=== PATIENT | female | born 1990 | race Caucasian/White ===

== ENCOUNTER 2019-05-10 18:10 | Emergency (ER) | payer BC, MEDICAID, SELFPAY ==
--- NOTE | ~2019-05-10 | US_ITS ---
EXAMINATION: US OB <=14 wk fetus w TV DATE: 05/10/2019 20:16 INDICATION: Vaginal spotting. Evaluate for ectopic . TECHNIQUE: Real-time transabdominal obstetric ultrasound. FINDINGS: No prior studies for comparison. The uterus measures 8 x 5.9 x 6.3 cm. There is an intrauterine gestational sac, with yolk sac. No fet al pole identified. No subchorionic hemorrhage. There is a 2.9 cm corpus luteal cyst of the right ova ry. Left ovary is unremarkable. No free fluid in the pelvis. IMPRESSION: 1. Intrauterine gestational sac containing a yolk sac. Gestational sac diameter corresponds to 5 week 3 day gestation, EUNICE 01/07/2020. No pole is identified yet due to early gestational age. Recom mend follow-up with serial quantitative beta-hCG levels and ultrasound as clinically indicated. Reviewed, dictated and finalized at location A. ICATION DEVELOPMENT LIAISON IMPRESSION: 1. Intrauterine gestational sac containing a yolk sac. Gestational sac diameter corresponds to 5 week 3 day gestation, EUNICE 01/07/2020. No pole is identi fied yet due to early gestational age. Recommend follow-up with serial quantita tive beta-hCG levels and ultrasound as clinically indicated.
[2019-05-10 18:25] VITALS: BP 123/81; PULSE 100; RESP 18; TEMP 37.1; O2SAT 100
[2019-05-10 18:57] LABS: Add Urine Microscopic? YES; Appearance Urine Clear (Clear); Bacteria Urine Trace /hpf; Bilirubin Urine Negative (Negative); Blood Urine Negative (Negative); Color Urine Yellow (Yellow); Glucose Urine UA Negative (Negative); Ketones Urine Trace mg/dL (Negative); Leukocyte Esterase Ur 3+ LEU/UL (Negative); Nitrate Urine Negative (Negative); Protein Urine Negative (Negative); Specific Grav Ur 1.014 (1.001-1.035); Squamous Epithelial Cell Urine Many /hpf (Few); Urobilinogen Urine Negative mg/dL (<2.0)
[2019-05-10 19:09] LABS: Basophils Absolute Auto 0.1 K/mm3 (0.0-0.1); Basophils Percent Auto 0.4 % (0.2-1.2); Eosinophils Absolute Auto 0.1 K/mm3 (0-0.3); Eosinophils Percent Auto 0.9 % (0-4.4); Hematocrit 38.1 % (37.0-47.0); Hemoglobin 13.2 g/dL (12.0-15.0); Immature Granulocyte Absolute 0.03 K/mm3 (0.00-0.031); Immature Granulocyte Percent A 0.3 % (0-0.5); Lymphocytes Absolute Auto 3.34 K/mm3 (0.9-3.2); Mean Corpuscular HGB Conc 34.6 g/dl (32-36); Mean Corpuscular Hemoglobin 29.7 pg (26-34); Mean Corpuscular Volume 85.6 fl (80-100); Mean Platelet Volume 9.2 fl (7.4-10.4); Monocytes Absolute Auto 0.7 K/mm3 (0.1-0.6); Monocytes Percent Auto 5.6 % (2.6-8.5); Neutrophils Absolute Auto 7.7 K/mm3 (1.3-6.7); Neutrophils Percent Auto 64.8 % (45.5-73.1); Platelet Count Result 398 k/mm3 (150-375); Red Blood Count 4.45 M/mm3 (4.2-5.4); Red Cell Distribution Width 12.2 % (11.5-14.5); White Blood Count 11.9 K/mm3 (4.5-10.0)
--- NOTE | 2019-05-10 19:32 | ED.PREGNANCY ---
HPI - General Chief complaint: OB/Uterine Contractions Stated complaint: ,spotting,cramping Time Seen by Provider: 05/10/19 19:25 Source: patient Mode of arrival: ambulatory Limitations: no limitations History of Present Illness HPI Narrative: A 28 y/o female presents to the ED with c/o vaginal bleeding. Pt states that she is currently and the vaginal bleeding started today. She is not sure how far along she is, but her last menstrual cycle was the end of February 2019. Pt adds that her menstrual cycles are usually abnormal. Her first [facility] appointment is 05/15/[address] Roche. Pt is . She reports mild ABD cramping. MD Complaint: vaginal bleeding Onset (ago): hour(s) (Today) Associated symptoms: abdominal pain (Mild cramping) Hx Last Menstrual Period: End of February 2019 Patient : Yes Number of Weeks : Unknown Related Data : 2 Para: 1 Allergies Allergy/AdvReac Type Severity Reaction Status Date / Time Penicillins Allergy Intermediate Verified 08/30/18 14:34 levofloxacin Allergy Mild Rash Verified 03/25/15 12:42 amoxicillin Allergy Unknown Verified 03/25/15 12:42 cephalexin Allergy Unknown Verified 03/25/15 12:42 Review of Systems Review of Systems: All systems reviewed & are unremarkable except as noted in HPI and below Gastrointestinal: Gastrointestinal: Reports abdominal pain (Mild cramping) Genitourinary: Genitourinary: Reports abnormal vaginal bleeding PMFSH Past Medical History Medical History Anxiety 2 UTI (urinary tract infection) Surgical History Surgical History (Updated 05/10/19 @ 19:40 by Nahed Martin) History of cholecystectomy Family History Family History Mother Family history of gallbladder disease Other Family history of cardiovascular disease Hypertension Social History Social History Smoking status: Never smoker Alcohol intake: never Gender identity (if verbalized by the patient): Female Exam Narrative: Exam Narrative: APPEARANCE: No acute distress, nontoxic, resting in bed EYES: EOMI HEENT: Normocephalic, atraumatic, OMM RESPIRATORY: No respiratory distress Clear to auscultation bilaterally with no rhonchi wheezing or rales. CARDIOVASCULAR: Regular rate and rhythm without murmurs rubs or gallops. ABDOMINAL: Soft, nontender, nondistended, no rebound or guarding : Normal external exam, no vaginal bleeding or discharge seen, cervix closed MUSCULOSKELETAl: Moves all extremities. No clubbing, cyanosis or edema. NEURO: Awake and alert. Following commands, speech normal, no focal deficits SKIN:: Warm, dry. No rashes lesions or abrasions PSYCHIATRIC: Normal affect/mood, Course Course Emergency Course: Discussed with patient results of workup and diagnosis. Discussed need for follow-up with primary care, proper use of medication, and reasons to return to the emergency department. Patient understands and agrees to current treatment plan Reevaluation(s) Reevaluation #1: Patient is A+ blood type according to notes from August 2011. Date: 05/10/19 Time: 19:36 Consultations Consultation #1: Discussed case with [facility], Dr. Jamison. They advise the patient be discharged and to follow-up. Date: 05/10/19 Time: 21:25 Vital Signs Vital signs: Vital Signs Temperature 98.7 F 05/10/19 18:25 Pulse Rate 100 05/10/19 18:25 Respiratory Rate 18 05/10/19 18:25 Blood Pressure 123/81 05/10/19 18:25 Pulse Oximetry 100 05/10/19 18:25 Temperature 97.6 F 05/10/19 19:35 Pulse Rate 89 05/10/19 20:27 Respiratory Rate 18 05/10/19 19:35 Blood Pressure 127/98 H 05/10/19 20:27 Pulse Oximetry 98 05/10/19 19:35 MDM - OB/Uterine Contractions Lab Data Result diagrams: 05/10/19 19:00 Labs: Lab Results 05/10/19 05/10/19 05/10/19 Range/Units
[2019-05-10 19:35] VITALS: BP 127/74; PULSE 81; RESP 18; TEMP 36.4; O2SAT 98
--- NOTE | 2019-05-10 19:40 | PC.NURSE ---
ultrasound here to take patient.
[2019-05-10 20:27] VITALS: BP 120/81; BP 122/80; BP 127/98; PULSE 80; PULSE 81; PULSE 89
[2019-05-10 21:52] VITALS: BP 115/62; PULSE 81; RESP 16; TEMP 36.3; O2SAT 100
== END 2019-05-10 21:53 | disposition home or self-care (01) ==
PROVIDERS: Emergency Medicine; Emergency Provider Emergency Medicine
DX: O20.0 Threatened abortion (principal); Z3A.01 Less than 8 weeks gestation of pregnancy; Z87.440 Personal history of urinary (tract) infections
CPT/HCPCS: 36415; 76801; 76817; 81001; 81025; 84702; 85025; 86900; 86901; 87077; 87086; 87088; 99284

== ENCOUNTER → 2019-05-17 15:15 | Outpatient (CLI) | payer BC, MEDICAID, SELFPAY ==
--- NOTE | ~2019-05-17 | US_ITS ---
EXAMINATION: US OB transvaginal DATE: 05/17/2019 15:29 INDICATION: Spotting during first trimester TECHNIQUE: Real-time pelvic transabdominal and transvaginal ultrasound was performed. COMPARISON: 05/10/2019 FINDINGS: The uterus measures 10.7 x 6.5 x 7.5 cm. There is an intrauterine gestational sac. A yolk sac is identified. heart motion is identified measuring 127 beats per minute (bpm) by M-mode Do ppler. The crown rump length measures 5 mm , which correlates with an estimated gestational age of 6 weeks and 2 day(s) (+/-) 4 day(s). The right ovary measures 5.8 x 3.5 x 3.1 cm and contains a complex cyst or corpus luteum measuring up to 2.0 cm. The left ovary measures 3.1 x 1.8 x 3.0 cm. There is no free fluid in the pelvis. IMPRESSION: 1. Live intrauterine with an estimated gestational age of 6 weeks and 2 day(s) (+/-) 4 day( s) and an estimated delivery date of 01/08/2020. Reviewed, dictated and finalized at location A. N ENERGY POLICY ANALYST IMPRESSION: 1. Live intrauterine with an estimated gestational age of 6 weeks and 2 day(s) (+/-) 4 day(s) and an estimated delivery date of 01/08/2020.
== END ==
PROVIDERS: Visit Provider Obstetrics & Gynecology Gynecology
DX: O26.851 Spotting complicating pregnancy, first trimester (principal); Z3A.01 Less than 8 weeks gestation of pregnancy
CPT/HCPCS: 76817

== ENCOUNTER 2019-08-08 11:55 | Outpatient (CLI) | payer MEDICAID, SELFPAY ==
--- NOTE | ~2019-08-08 | US_ITS ---
EXAMINATION: US OB limited DATE: 08/08/2019 12:27 INDICATION: Bleeding during second trimester TECHNIQUE: Real-time ultrasound of the pelvis was performed. The interpreting radiologist was not pre sent for the study. COMPARISON: 05/17/2019 FINDINGS: There is a single living fetus in breech presentation. The placenta is posterior and not low-lying w ith caudal margin 4.4 cm from the internal cervical os. Normal cervical length of 5.6 cm. 1.7 x 1.4 x 0.5 cm hypoechoic subchorionic hematoma along the inferior margin of the placenta. heart rate is 137 beats per minute (bpm). The amniotic fluid volume is subjectively normal. IMPRESSION: 1. Single living fetus in breech presentation with heart rate of 137 bpm. 2. Small subchronic hematoma. Reviewed, dictated and finalized at location A. IMPRESSION: 1. Single living fetus in breech presentation with heart rate of 137 bpm . 2. Small subchronic hematoma.
== END 2019-08-08 11:56 | disposition home or self-care (01) ==
PROVIDERS: Visit Provider Obstetrics & Gynecology Gynecology
DX: O26.859 Spotting complicating pregnancy, unspecified trimester (principal); O32.1XX0 Maternal care for breech presentation, not applicable or unspecified; Z3A.00 Weeks of gestation of pregnancy not specified
CPT/HCPCS: 76815

== ENCOUNTER 2019-08-10 09:43 | Outpatient (CLI) | payer MEDICAID, SELFPAY ==
--- NOTE | ~2019-08-10 | US_ITS ---
EXAMINATION: US OB /maternal detail DATE: 08/10/2019 11:22 INDICATION: Second trimester anatomic survey TECHNIQUE: Real-time ultrasound of the pelvis was performed. COMPARISON: 08/08/2019 FINDINGS: There is a single living fetus in variable presentation. The placenta is posterior and 4.4 cm from th e internal cervical os. Two small hypoechoic areas are seen placenta which measure up to 1.3 cm, decr eased in size prior examination. heart rate is 138 beats per minute (bpm). cardiac activ ity and movement are noted. The amniotic fluid index is subjectively normal. One of the lower extremities appears to be bent at abnormal angle. The following anatomy was id entified as normal: 4 chamber heart 3 vessel cord cord insertion kidneys urinary bladder stomach spine diaphragm ventricles cisterna magna cerebellum The following biometric data were obtained: Biparietal diameter (BPD): 4.1 cm; head circumference (HC): 15.2 cm; abdominal circumference (AC): 13 .3 cm; femur length (FL): 2.7 cm. These measurements are concordant. Estimated weight is 251 g +/- 37 g, which correlates with the 61st percentile when 01/08/2020 i s used as estimated date of delivery. As single measurements, these parameters are each equal to the following estimated gestational ages w ith ranges of +/- 2 standard deviations: BPD: 18 weeks 3 days +/- 1 weeks 5 days. HC: 18 weeks 2 days +/- 1 weeks 3 days. AC: 18 weeks 6 days +/- 2 weeks 0 days. FL: 18 weeks 4 days +/- 1 weeks 6 days. estimated gestational age based solely on measurements from this exam is 18 weeks 4 days +/- 1 weeks 2 days. IMPRESSION: 1. Single living fetus in variable presentation. 2. Estimated weight is 251 g +/- 37 g, which correlates with the 61st percentile when 0 is used as estimated date of delivery. 3. Possible deformity of one of the lower extremities. Consider dedicated ultrasound. 4. Small subchorionic hematoma, slightly decreased in size. Reviewed, dictated and finalized at location A. IMPRESSION: 1. Single living fetus in variable presentation. 2. Estimated weight is 251 g +/- 37 g, which correlates with the 61st per centile when 01/08/2020 is used as estimated date of delivery. 3. Possible deformity of one of the lower extremities. Consider dedicated ultra sound. 4. Small subchorionic hematoma, slightly decreased in size.
== END 2019-08-10 09:44 | disposition home or self-care (01) ==
PROVIDERS: Visit Provider Obstetrics & Gynecology Gynecology
DX: Z36.87 Encounter for antenatal screening for uncertain dates (principal); O43.899 Other placental disorders, unspecified trimester; Z3A.00 Weeks of gestation of pregnancy not specified
CPT/HCPCS: 76805

== ENCOUNTER 2019-11-17 07:51 | Outpatient (CLI) | payer OTHER, SELFPAY ==
--- NOTE | ~2019-11-17 | US_ITS ---
EXAMINATION: US OB follow up DATE: 11/17/2019 08:31 INDICATION: Evaluate growth TECHNIQUE: Real-time transabdominal obstetric ultrasound. FINDINGS: Comparison to multiple prior studies sequentially, with oldest reviewed study dated 020. There is a single living fetus in vertex presentation. The placenta is fundal/posterior without plac enta previa. cardiac activity and movement is noted with a heart rate of 133 beats per minute. T he amniotic fluid volume is low normal limits measuring 7.9 cm (normal range for gestational age is 8 .4-24.3 cm).. The following biometric data were obtained: BPD: 84mm corresponds to gestational age 33 weeks 6 days. Head circumference: 307mm corresponds to gestational age 34 weeks 1 days. Abdominal circumference: 279mm corresponds to gestational age 32 weeks 0 days. Femur length: 62mm corresponds to gestational age 32 weeks 1 days. Estimated weight: 1969grams +/- 295grams.] IMPRESSION: 1. Single living intrauterine in vertex presentation with an estimated gestational age of 32 weeks 5 days by inititial ultrasound. Appropriate interval growth. 2. Normal placenta. 3: Oligohydramnios. GONZALES measures 7.9 cm. Reviewed, dictated and finalized at location A. IMPRESSION: 1. Single living intrauterine in vertex presentation with an estimat ed gestational age of 32 weeks 5 days by inititial ultrasound. Appropriate int erval growth. 2. Normal placenta. 3: Oligohydramnios. GONZALES measures 7.9 cm.
== END 2019-11-17 07:52 | disposition home or self-care (01) ==
PROVIDERS: Visit Provider Obstetrics & Gynecology Gynecology
DX: O41.00X0 Oligohydramnios, unspecified trimester, not applicable or unspecified (principal); Z3A.32 32 weeks gestation of pregnancy
CPT/HCPCS: 76816

== ENCOUNTER 2019-11-27 10:48 | Outpatient (CLI) | payer OTHER, SELFPAY ==
--- NOTE | ~2019-11-27 | US_ITS ---
US OB limited 11/27/2019 11:15 Indication: GONZALES check Procedure: High-resolution Limited obstetrical ultrasound Comparison: 11/17/2019 Findings: There is a single living intrauterine in vertex presentation. heart rate is 130 BPM. GONZALES is normal measuring 13.9 cm. Cervical length is 5.2 cm. Placenta is fundal without prev ia. Impression: 1: Normal GONZALES measures 13.9 cm. Reviewed, dictated and finalized at location A. Impression: 1: Normal GONZALES measures 13.9 cm.
== END 2019-11-27 10:49 | disposition home or self-care (01) ==
LOC: ANHIMG 10:49
PROVIDERS: Visit Provider Obstetrics & Gynecology Gynecology
DX: Z03.71 Encounter for suspected problem with amniotic cavity and membrane ruled out (principal); Z3A.00 Weeks of gestation of pregnancy not specified
CPT/HCPCS: 76815

== ENCOUNTER 2019-12-05 15:03 | Outpatient (CLI) | payer OTHER, SELFPAY ==
--- NOTE | ~2019-12-05 | US_ITS ---
US OB limited 12/05/2019 15:40 Indication: Oligohydramnios. Procedure: High-resolution Limited obstetrical ultrasound Comparison: 11/27/2019 Findings: There is a single living intrauterine in vertex presentation. heart rate 13 0 BPM. GONZALES is normal measuring 15 cm (normal range for gestational age is 7.9-24.9 cm). Placenta is p osterior. Impression: 1: Normal GONZALES measures 15 cm. Reviewed, dictated and finalized at location B. Impression: 1: Normal GONZALES measures 15 cm.
== END 2019-12-05 15:04 | disposition home or self-care (01) ==
PROVIDERS: Visit Provider Obstetrics & Gynecology Gynecology
DX: O41.03X0 Oligohydramnios, third trimester, not applicable or unspecified (principal)
CPT/HCPCS: 76815

== ENCOUNTER 2019-12-10 11:56 | Outpatient (RCR) | payer OTHER, SELFPAY ==
--- NOTE | ~2019-12-10 | US_ITS ---
EXAMINATION: US OB limited w BPP DATE: 12/10/2019 14:12 CDT INDICATION: Diabetes. TECHNIQUE: Real-time transabdominal obstetric ultrasound. FINDINGS: 12/05/2019 There is a single living fetus in breech presentation. The placenta is posterior without placenta pr evia. GONZALES is normal measuring 15.4 cm. cardiac activity and movement is noted with a heart rate of 147 beats per minute. Biophysical profile: breathin of 2 movement: 0 of 2 tone: 2 of 2 Amniotic flud pocket: 2 of 2 Total score: 6 of 8 IMPRESSION: 1. Single living intrauterine in breech presentation. 2: Total biophysical profile score of 6/8. 3: Normal GONZALES measures 15.4 cm. Reviewed, dictated and finalized at location A.
[2019-12-10 18:39] VITALS: BP 108/66; PULSE 99
== END 2020-01-01 07:54 | disposition home or self-care (01) ==
LOC: ANHOBOP 11:56
PROVIDERS: Visit Provider Obstetrics & Gynecology
DX: O36.8130 Decreased fetal movements, third trimester, not applicable or unspecified (principal); Z3A.36 36 weeks gestation of pregnancy
CPT/HCPCS: 59025; 76815; 76819

== ENCOUNTER 2019-12-31 05:00 | Inpatient (IN) | payer OTHER, SELFPAY ==
[2019-12-31] VITALS (76 sets, daily range): BP systolic 86–236; BP diastolic 39–214; PULSE 64–134; RESP 12–17; TEMP 36.2–37.3; O2SAT 95–100; BMI 38.5
--- NOTE | 2019-12-31 05:22 | LDADM ---
This patient, Dena Talbert, was admitted to Labor/Delivery/Recovery 108 on 12/31/19 at 05:00. Plans for labor, pain management and were discussed with patient. Patient/family oriented to hospital policies and general routines including ID bracelet, bed and alarms, visiting hours, pain management, procedures, bathroom and other care routines, personal items, smoking policy, room service/diet and guest tray routines, security routines, and visiting hours. Patient/Family are encouraged to report perceived risks to care and to ask questions if they do not understand what they are told or what they should do. See OBIX for further documentation.
[2019-12-31] MEDS: LACTATED RINGERS 1,000 ML 125 ML IV CONT ×2 (05:54→08:21)
[2019-12-31 05:55] LABS: Basophils Percent Auto 0.4 % (0.2-1.2); Eosinophils Absolute Auto 0.1 K/mm3 (0-0.3); Hematocrit 31.5 % (37.0-47.0); Hemoglobin 10.7 g/dL (12.0-15.0); Immature Granulocyte Absolute 0.09 K/mm3 (0.00-0.031); Immature Granulocyte Percent A 0.8 % (0-0.5); Lymphocytes Absolute Auto 3.11 K/mm3 (0.9-3.2); Lymphocytes Percent Auto 29.3 % (18.3-44.2); Mean Corpuscular Hemoglobin 28.3 pg (26-34); Mean Corpuscular Volume 83.3 fl (80-100); Mean Platelet Volume 9.9 fl (7.4-10.4); Monocytes Absolute Auto 0.6 K/mm3 (0.1-0.6); Monocytes Percent Auto 5.7 % (2.6-8.5); Neutrophils Absolute Auto 6.7 K/mm3 (1.3-6.7); Neutrophils Percent Auto 62.8 % (45.5-73.1); Platelet Count Result 267 k/mm3 (150-375); Red Blood Count 3.78 M/mm3 (4.2-5.4); Red Cell Distribution Width 14.3 % (11.5-14.5); White Blood Count 10.6 K/mm3 (4.5-10.0)
[2019-12-31] MEDS: AMPICILLIN 2 GM/NS 100 ML 2 GM/100 ML BAG IVPB (05:55)
[2019-12-31] MEDS: OXYTOCIN 30 UNITS/NS 500 ML 30 UNITS/500 ML BAG IV CONT (05:55)
--- NOTE | 2019-12-31 08:50 | WPDANESEPP ---
Anes - Eval Pre Procedure Procedure: Labor Epidural Date/Time: 12/31/19 08:50 Surgeon: Kaley Preop Diagnosis: Labor Pain Pre Op Diagnosis: Induction of Labor Patient Data Age: 29 Gender: F Height: 5 ft 3 in Weight: 98.5 kg Last Vital Signs Temp 36.2 C L 12/31/19 07:06 Pulse 93 12/31/19 08:50 BP 100/55 L 12/31/19 08:50 Pulse Ox 100 12/31/19 08:46 Allergies Allergy/AdvReac Type Severity Reaction Status Date / Time amoxicillin Allergy Mild Rash Verified 12/31/19 05:13 levofloxacin Allergy Mild Rash Verified 12/09/19 12:44 cephalexin Allergy Unknown Other Verified 12/09/19 12:43 Home Medications Medication Instructions Recorded Confirmed Type PNV cmb#95-ferrous fumarate-FA 1 tablet PO DAILY 12/09/19 12/09/19 History [] ergocalciferol (vitamin D2) 1,250 mcg PO WEEKLY 12/09/19 12/09/19 History [Vitamin D2] buspirone [BuSpar] 7.5 mg PO BID 12/31/19 12/31/19 History famotidine [Pepcid] 10 mg PRN PRN 12/31/19 12/31/19 History Laboratory Tests 12/31/19 12/31/19 12/31/19 05:33 05:33 05:33 WBC 10.6 K/mm3 H K/mm3 (4.5-10.0) RBC 3.78 M/mm3 L M/mm3 (4.2-5.4) Hgb 10.7 g/dL L g/dL (12.0-15.0) Hct 31.5 % L % (37.0-47.0) MCV 83.3 fl fl (80-100) MCH 28.3 pg pg (26-34) MCHC 34.0 g/dl g/dl (32-36) RDW 14.3 % % (11.5-14.5) Plt Count 267 k/mm3 k/mm3 (150-375) MPV 9.9 fl fl (7.4-10.4) Immature Gran % (Auto) 0.8 % H % (0-0.5) Neut % (Auto) 62.8 % % (45.5-73.1) Lymph % (Auto) 29.3 % % (18.3-44.2) [place] % (Auto) 5.7 % % (2.6-8.5) Eos % (Auto) 1.0 % % (0-4.4) Baso % (Auto) 0.4 % % (0.2-1.2) Lymph # (Auto) 3.11 K/mm3 K/mm3 (0.9-3.2) [place] # (Auto) 0.6 K/mm3 K/mm3 (0.1-0.6) Eos # (Auto) 0.1 K/mm3 K/mm3 (0-0.3) Baso # (Auto) 0.0 K/mm3 K/mm3 (0.0-0.1) Abs Immat Gran (auto) 0.09 K/mm3 H K/mm3 (0.00-0.031) Absolute Neuts (auto) 6.7 K/mm3 K/mm3 (1.3-6.7) Absolute Nucleated RBC 0.0 K/mm3 K/mm3 (0.0-0.012) Nucleated RBC % 0.0 % % (0.0-0.2) RPR Pending Blood Type A Positive Antibody Screen Negative : gestational age (EUNICE 12/28/19) Patient hx anesthesia problems: none Family hx anesthesia problems: none PMFSH Past Medical History Medical History Anxiety 2 UTI (urinary tract infection) Surgical History Surgical History History of cholecystectomy Family History Family History Mother Family history of gallbladder disease Hypertension Grandparent Family history of cardiovascular disease Hypertension Social History Social History Smoking status: Never smoker Alcohol intake: never Substance use: never Gender identity (if verbalized by the patient): Female Spiritual care concerns: No Exam Day of Procedure 12/31/19 08:50 Patient weight: overweight Heart: regular rate and rhythm Lungs: normal air movement Airway: Mallampati scale class II Neurological: alert and oriented
--- NOTE | 2019-12-31 10:58 | PM.OBPRVD ---
OB - Delivery Note Procedure Delivery date: 12/31/19 events: Labor Induction Intrapartal events: None Induction method: AROM and per pitocin protocol Delivery monitor: external FHT and internal uterine Route of delivery: Laceration description: None Specimen: No Estimated blood loss (mL): 100 Anesthesia type: Epidural Disposition: floor [place] Baby Date of : 12/31/19 Weeks of gestation at delivery: 39 Infant gender: Female presentation: vertex Placenta delivery description: Spontaneous cord vessel description: 3 Vessels and Nuchal Cord score one minute: 8 score five minutes: 9
--- NOTE | 2019-12-31 10:59 | PM.OBDSVD ---
DS: Admitting Diagnosis Admitting Diagnosis Admitting Diagnosis: Induction of Labor DS: Discharge Diagnosis Discharge Diagnosis (1) (normal spontaneous vaginal delivery): Code(s): O80 - Encounter for full-term uncomplicated delivery Status: Acute OB - DS: Summary OB Procedures : Ultrasound OB Procedures Intrapartum: Spontaneous Vag Delivery OB Procedures: : None Peripartum Data Delivery Method: Natural Vaginal Laceration description: None complications: none Status at Discharge Functional status at discharge: independent ambulation Overall status at discharge: patient is progressing back to baseline Time Spent with Patient Time attestation: Total time spent providing and/or coordinating discharge services: DS: Data Data Completed and Pending Labs on day of discharge: Labs from last 24 hours 12/31/19 12/31/19 12/31/19 05:33 05:33 05:33 WBC 10.6 H RBC 3.78 L Hgb 10.7 L Hct 31.5 L MCV 83.3 MCH 28.3 MCHC 34.0 RDW 14.3 Plt Count 267 MPV 9.9 Immature Gran % (Auto) 0.8 H Neut % (Auto) 62.8 Lymph % (Auto) 29.3 [place] % (Auto) 5.7 Eos % (Auto) 1.0 Baso % (Auto) 0.4 Lymph # (Auto) 3.11 [place] # (Auto) 0.6 Eos # (Auto) 0.1 Baso # (Auto) 0.0 Abs Immat Gran (auto) 0.09 H Absolute Neuts (auto) 6.7 Absolute Nucleated RBC 0.0 Nucleated RBC % 0.0 RPR Pending Blood Type A Positive Antibody Screen Negative Discharge Plan Discharge Attending physician on discharge: Nicci Roche Discharging Clinician: Nicci Roche Anticipated Discharge Date/Time: 01/01/20 11:00 Patient Disposition: Home, Self-Care Activity: may shower and pelvic rest Diet: regular Discharge Instructions: Education: Mom and Baby Guide Given to: Mother Follow-Up: Call your delivering provider's office for an appointment to be seen. Mom should come to the [facility] for the follow-up appointment. Appointment Date/Time: January 02, 2020 at 8:00 am What to expect at your follow-up visit: Physical Assessment Call [phone] if you are unable to keep your appointment time. BREAST CARE: * Wear a snug supportive bra. * For engorgement discomfort: Bottle Feeding: * May apply ice packs PERINEAL CARE: * Until bleeding stops, use your reina bottle after urinating * Change your pad frequently throughout the day * You may take sitz baths several times a day (fill your bathtub with warm water and soak for 20 minutes.) Do NOT bathe in the water * No tub baths until seen by your physician - You may shower ACTIVITY: * Rest as much as possible. * Do not exercise or lift anything heavier than your baby (such as laundry or other children.) * Avoid stairs or driving as much as possible. * Do not put anything into the vagina. No douching, tampons, or sexual activity until seen by physician. NOTIFY PHYSICIAN IF YOU HAVE ANY QUESTIONS OR IF ANY OF THE FOLLOWING SYMPTOMS OCCUR: * If your perineum becomes red, swollen, or more painful than what you have experienced in the hospital. * If your vaginal bleeding becomes foul smelling. * If your vaginal bleeding becomes more heavy than a period or if your bleeding changes from pink to bright red. However, you may pass an occasional walnut-sized clot once or twice for the first week . * If you experience a sharp, shooting pain in you calves. * If you discover a hard, reddened area on your breast or if you experience flu-like symptoms. DIET: * Eat regular, well-balanced meals. * Drink plenty of fluids daily. Patient Instructions: Antibiotic Form Stand Alone Forms: General Discharge Information Follow-up/Referrals: Nicci Roche MD [Physician] - 6 Weeks Discharge Medications: Continued ergocalciferol (vitamin D2) [Vitamin D2] 1,250 mcg (50,000 unit) Capsule 1,250 mcg PO WEEKLY RF: 0 PNV cmb#95
--- NOTE | 2019-12-31 11:02 | WPDOBADMIT ---
Obstetrics - Admit Note Admission Note: record reviewed. No pertinent additions to the history and/or any subsequent changes in the physical findings that are not consistent with the expected course of the were found. Additions to the history and/or subsequent changes in the physical findings follow. None.Here for MIL. AROM with clear fluid this am at 7:45. Cervix was 5/70/-2 vtx.
[2019-12-31] MEDS: OXYTOCIN 30 UNITS/NS 500 ML 30 UNITS/500 ML BAG 125 UNITS IV CONT (11:19)
[2019-12-31 13:21] LABS: Rapid Plasma Reagin Non-Reactive (NonReactive)
[2019-12-31] MEDS: WITCH HAZEL 40 PADS 1 PAD TOPICAL (13:53)
[2019-12-31] MEDS: BENZOCAINE 20% AER SPR (*SP) 56 GM CAN 1 SPRAY TOPICAL (13:53)
--- NOTE | 2019-12-31 14:49 | OBPPTRN ---
1418 Patient transferred to post room #292 via W/C. Support person present. Oriented to unit, room, information board, rooming in, admission packet and security measures. Patient verbalizes understanding.
[2019-12-31] MEDS: ACETAMINOPHEN 325 MG TABLET 650 MG PO (16:27)
[2019-12-31] MEDS: IBUPROFEN 600 MG TABLET PO (16:28)
--- NOTE | 2019-12-31 17:33 | PC.NURSE ---
1655 left for a 6 hour pass to visit infant at [facility].
[2020-01-01 06:02] LABS: Hemoglobin 9.7 g/dL (12.0-15.0)
--- NOTE | 2020-01-01 07:25 | WPDANLDPN2 ---
Anes-Prog Note L&D Date/Time: 01/01/20 07:25 Comfortable throughout: labor and delivery Neuraxial method: epidural Epidural/Spinal procedure site: clean & non-tender Neuro status: Neuro function grossly intact. Cardiovascular status: normal Respiratory status: normal Airway patency: baseline Mental status: baseline Post-Op hydration status: normal Vital Signs: Last Vital Signs Temp 36.6 C 12/31/19 22:30 Pulse 103 H 12/31/19 22:30 Resp 17 12/31/19 22:30 BP 122/73 12/31/19 22:30 Pulse Ox 99 12/31/19 16:20 Pain score (VAS): 0 I/O: Intake & Output 12/31/19 12/31/19 01/01/20 15:59 23:59 07:59 Intake Total 1000 Output Total 150 Balance 850 Post-procedural complaints: none Patient feedback: Patient satisfied with anesthetic care.
[2020-01-01 07:40] VITALS: BP 109/68; PULSE 55; RESP 20; TEMP 36.7
[2020-01-01] MEDS: busPIRone HCL 5 MG TABLET PO (09:05)
[2020-01-01] MEDS: busPIRone HCL 2.5 MG TABLET PO (09:05)
[2020-01-01] MEDS: IBUPROFEN 600 MG TABLET PO (09:05)
[2020-01-01] MEDS: DOCUSATE SODIUM 100 MG CAPSULE PO (09:05)
[2020-01-01] MEDS: POLYSACCHARIDE IRON COMPLEX 150 MG CAPSULE PO (09:05)
[2020-01-01] MEDS: ACETAMINOPHEN 325 MG TABLET 650 MG PO (09:06)
--- NOTE | 2020-01-01 16:18 | PM.OBPNVD ---
OB - PN: Subj Subjective Date/time seen: 01/01/20 Patient reports baby is doing well desires discharge to go see her. Pain controlled minimal bleedding. OB - PN: Obj Data Labs CBC & Chem 7: 01/01/20 05:08 Labs: Laboratory Results - last 24 hr 01/01/20 05:08 Hgb 9.7 L Hct 29.0 L OB - PN A/P Assessment and Plan (1) (normal spontaneous vaginal delivery): Code(s): O80 - Encounter for full-term uncomplicated delivery Status: Acute Assessment and Plan: f/u up in office in 6 weeks. continue home medications and Iron supplements. Time Spent With Patient Time: Total time spent is greater than 50% in coordination of care (as documented) at patient's floor/unit and/or counseling patient: Exam GI: Other: ff below umbilicus
[2020-01-02 08:03] VITALS: BP 115/69; PULSE 63; RESP 20; TEMP 36.7; O2SAT 100
== END 2020-01-01 09:40 | disposition home or self-care (01) | DRG 560 ==
LOC: ANHLDR 11:01 → ANHOB2 01-01 09:21 → ANHLDR 01-02 09:07 → ANHOB2 01-02 09:07
PROVIDERS: Admitting Provider Obstetrics & Gynecology Gynecology; Visit Provider Obstetrics & Gynecology
DX: O99.824 Streptococcus B carrier state complicating childbirth (principal); O69.81X0 Labor and delivery complicated by cord around neck, without compression, not applicable or unspecified; Z3A.39 39 weeks gestation of pregnancy; Z37.0 Single live birth; Z23 Encounter for immunization
CPT/HCPCS: 36415; 85014; 85018; 85025; 86592; 86850; 86900; 86901; 90471; 90653; A9270; G0008; J0290; J2590; J2795; J7120

== ENCOUNTER 2020-12-25 14:00 | Outpatient (CLI) | payer OTHER, SELFPAY ==
--- NOTE | ~2020-12-25 | US_ITS ---
EXAMINATION: US pelvic complete w TV DATE: 12/25/2020 15:05 INDICATION: Abnormal uterine bleeding. TECHNIQUE: Multiple transabdominal and transvaginal sonographic images of the pelvis were obtained. COMPARISON: None. FINDINGS: TRANSABDOMINAL ULTRASOUND: The uterus measures 8.7 x 5.8 x 4.7 cm. There is no free fluid in the pelvis. TRANSVAGINAL ULTRASOUND: The endometrial complex measures 13 mm in thickness. There are nabothian cysts in the cervix. The rig ht ovary measures 3.9 x 2.7 x 3.2 cm. The left ovary measures 4.1 x 3.3 x 2.1 cm. There is normal vas cular flow in the ovaries. IMPRESSION: 1. No etiology for abnormal uterine bleeding. Reviewed, dictated and finalized at location A.
[2020-12-25 14:22] LABS: Hematocrit 39.9 % (37.0-47.0); Hemoglobin 13.3 g/dL (12.0-15.0); Mean Corpuscular HGB Conc 33.3 g/dl (32-36); Mean Corpuscular Hemoglobin 28.5 pg (26-34); Mean Corpuscular Volume 85.6 fl (80-100); Mean Platelet Volume 9.5 fl (7.4-10.4); Platelet Count Result 294 k/mm3 (150-375); Red Blood Count 4.66 M/mm3 (4.2-5.4); Red Cell Distribution Width 13.2 % (11.5-14.5)
[2020-12-25 14:49] LABS: Beta HCG Quantitative < 2.39 mIU/ML
[2020-12-25 16:26] LABS: Free T4 Free Thyroxine 0.75 ng/mL (0.78-2.19)
== END 2020-12-25 14:01 | disposition home or self-care (01) ==
LOC: ANHLAB 14:03
PROVIDERS: Visit Provider Nurse Practitioner
DX: N93.8 Other specified abnormal uterine and vaginal bleeding (principal)
CPT/HCPCS: 36415; 76830; 76856; 84439; 84443; 84702; 85027

== ENCOUNTER 2022-04-13 10:30 | Outpatient (CLI) | payer OTHER, SELFPAY ==
--- NOTE | ~2022-04-13 | US_ITS ---
EXAMINATION: US OB <=14 wk fetus w TV DATE: 04/13/2022 11:31 INDICATION: Uncertain dating of a likely first trimester . TECHNIQUE: Real-time pelvic ultrasound utilizing transvaginal and transabdominal probes was teddy braxton. The interpreting radiologist was not present for the study. COMPARISON: None. FINDINGS: The uterus measures 12.2 x 5.7 x 7.3 cm. Again seen are small anechoic nabothian cysts at the cervix. There is an intrauterine gestational sac with double decidua sign and internal yolk sac but no measu rable pole yet evident likely due to early stage of . The mean sac diameter measures 1 0 mm, which correlates with an estimated gestational age of 5 weeks and 5 days. The right ovary measures 3.1 x 1.8 x 1.8 cm. The left ovary measures 5.1 x 3.4 x 3.1 cm. 3.2 cm anech oic left ovarian cyst. Vascular flow with arterial waveforms identified at both ovaries. There is no free fluid in the pelvis. IMPRESSION: 1. Single intrauterine gestational sac with yolk sac but no discernible pole yet evident likely due to early stage of . 2. Gestational age by ultrasound based upon mean sac diameter of 5 weeks 5 day(s) +/- 4 day(s) with ultrasound estimated date of delivery (EUNICE) of 12/09/2022. Reviewed, dictated and finalized at location B. [employer] IMPRESSION: 1. Single intrauterine gestational sac with yolk sac but no discernible p ole yet evident likely due to early stage of . 2. Gestational age by ultrasound based upon mean sac diameter of 5 weeks 5 day (s) +/- 4 day(s) with ultrasound estimated date of delivery (EUNICE) of 12/09/2022.
== END 2022-04-13 10:31 | disposition home or self-care (01) ==
PROVIDERS: Visit Provider Advanced Practice Midwife
DX: Z36.87 Encounter for antenatal screening for uncertain dates (principal); O36.80X0 Pregnancy with inconclusive fetal viability, not applicable or unspecified
CPT/HCPCS: 76801; 76817

== ENCOUNTER 2022-04-26 08:42 | Outpatient (CLI) | payer OTHER, SELFPAY ==
--- NOTE | ~2022-04-26 | US_ITS ---
Pelvic ultrasound. Clinical History: First trimester , establish dates Technique: Realtime transabdominal and transvaginal scanning of the pelvis was performed. Color flow Doppler and Doppler spectral analysis were performed. Findings: The uterus is anteverted, and contains an intrauterine gestation. [place]-rump length of 1.2 cm corresponds to an estimated gestational age of 7 weeks 3 days. heart rate is 171 bpm. The right ovary measures 4.1 x 1.7 x 3.2 cm. No significant right ovarian or adnexal mass is seen. The left ovary measures 4.9 x 4.7 x 4.1 cm. Simple left ovarian cyst measures 4.1 cm in diameter. Vascular flow present in both ovaries on Doppler spectral analysis. There is no evidence of free fluid in the cul de sac. Impression: Live intrauterine gestation with estimated gestational age of 7 weeks 3 days. heart rate is 171 bpm. 4.1 cm simple left ovarian cyst. Reviewed, dictated and finalized at [facility]. [employer]CTIVE SURGEON Impression: Live intrauterine gestation with estimated gestational age of 7 weeks 3 days. F etal heart rate is 171 bpm. 4.1 cm simple left ovarian cyst.
== END 2022-04-26 08:43 | disposition home or self-care (01) ==
PROVIDERS: Visit Provider Obstetrics & Gynecology Gynecology
DX: Z36.87 Encounter for antenatal screening for uncertain dates (principal); Z3A.01 Less than 8 weeks gestation of pregnancy; N83.202 Unspecified ovarian cyst, left side
CPT/HCPCS: 76801

== ENCOUNTER 2022-06-20 16:37 | Emergency (ER) | payer OTHER, SELFPAY ==
--- NOTE | 2022-06-20 17:32 | PC.NURSE ---
Patient's name called multiple times in waiting room for triage, no answer.
== END 2022-06-20 17:32 | disposition left against medical advice (07) ==
DX: Z53.21 Procedure and treatment not carried out due to patient leaving prior to being seen by health care provider (principal)
CPT/HCPCS: 99199

== ENCOUNTER 2022-08-18 09:26 | Emergency (ER) | payer OTHER, SELFPAY ==
--- NOTE | 2022-08-18 09:28 | ED.URI ---
HPI - URI/Sore Throat General Chief Complaint: Upper Respiratory Infection Stated Complaint: Sore Throat Time Seen by Provider: 08/18/22 09:28 Source: patient Mode of arrival: ambulatory Limitations: no limitations History of Present Illness HPI Narrative: Patient is a 32-year-old female that presents with sore throat that started Monday. 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 Patient has tried [id number] medication with no relief. Patient is 23 weeks . Denies any fever, chills, nausea, vomiting, diarrhea, ear pain, cough. Related Data Home Medications Medication Instructions Recorded Confirmed ergocalciferol (vitamin D2) 1,250 1,250 mcg PO WEEKLY 12/09/19 08/18/22 mcg (50,000 unit) capsule (Vitamin D2) vit no.95-ferrous 1 tablet PO DAILY 12/09/19 08/18/22 fumarate 28 mg-folic acid 800 mcg tablet () famotidine 20 mg tablet (Pepcid) 10 mg PRN PRN Heartburn 12/31/19 08/18/22 aspirin 81 mg tablet,delayed 81 mg DIRECTED 08/18/22 08/18/22 release levothyroxine 50 mcg tablet 50 mcg DIRECTED 08/18/22 08/18/22 Allergies Allergy/AdvReac Type Severity Reaction Status Date / Time amoxicillin Allergy Mild Rash Verified 12/31/19 05:13 levofloxacin Allergy Mild Rash Verified 12/09/19 12:44 cephalexin Allergy Unknown Other Verified 12/09/19 12:43 Review of Systems Review of Systems: All systems reviewed & are unremarkable except as noted in HPI and below Constitutional: Constitutional: Denies body ache(s), Denies chills, Denies fatigue, Denies fever(s), Denies headache(s), Denies malaise and Denies weakness Eyes: Eyes: Denies blurry vision, Denies itchy eyes and Denies loss of vision ENT: Denies otalgia, Denies headache(s), Reports nasal congestion, Denies sinus pain and Reports sore throat Cardiovascular: Cardiovascular: Denies chest pain, Denies irregular heart rhythm and Denies dyspnea Respiratory: Respiratory: Denies cough and Denies dyspnea Gastrointestinal: Gastrointestinal: Denies abdominal pain, Denies diarrhea, Denies nausea and Denies vomiting Musculoskeletal: Musculoskeletal: Denies back pain, Denies myalgias and Denies arthralgias Integumentary/Breasts: Skin/Breast: Denies pruritus and Denies rash Neurologic: Denies headache(s), Denies loss of vision and Denies weakness Psychiatric: Psychiatric: Reports no additional psychiatric complaints Endocrine: Endocrine: Denies fatigue Allergic/Immunologic: Allergic/Immunologic: Denies itchy eyes PMFSH Past Medical History Medical History (Updated 08/18/22 @ 09:58 by Patti Urbano APRN) Anxiety 2 UTI (urinary tract infection) Surgical History Surgical History History of cholecystectomy Family History Family History Mother Family history of gallbladder disease Hypertension Grandparent Family history of cardiovascular disease Hypertension Social History Social History Smoking status: Never smoker Alcohol intake: never Substance use: never Gender identity (if verbalized by the patient): Female Spiritual care concerns: No Comments At time of signature, agree with nursing past medical, surgical, social and family history. There is no relevant family history pertinent to the presenting complaint. Exam Const: General: cooperative, healthy appearing, comfortable, no acute distress and well nourished Nutritional Appearance: well nourished Orientation/consciousness: patient oriented x3 Limitations: no limitations HENMT: Head: normal to inspection, normocephalic and atraumatic Ears: hearing grossly normal bilaterally, external ears normal, TM's normal bilaterally, EAC's normal and no periauricular adenopathy Face/Nose/Sinus: Normal external nose present, Abnormal mucous membranes and turbinate
[2022-08-18 09:41] VITALS: BP 124/71; PULSE 80; RESP 16; TEMP 36.5; O2SAT 100
[2022-08-18 09:42] VITALS: BP 124/71; PULSE 80; RESP 16; TEMP 36.5; O2SAT 100
== END 2022-08-18 10:03 | disposition home or self-care (01) ==
PROVIDERS: Emergency Provider Nurse Practitioner Family
DX: Z79.82 Long term (current) use of aspirin (principal)
CPT/HCPCS: 87081; 87880; 99213; G0463

== ENCOUNTER 2022-11-04 09:05 | Emergency (ER) | payer MEDICAID, SELFPAY ==
--- NOTE | 2022-11-04 09:06 | ED.DENTAL ---
HPI - Dental/Oral General Stated complaint: toothache Time Seen by Provider: 11/04/22 09:06 Source: patient Mode of arrival: ambulatory Limitations: no limitations History of Present Illness HPI Narrative: Dena is a 32-year-old female patient presenting to the clinic today with complaints of dental pain times 2-3 days. She reports no known fever or chills. Has tried Orajel and olive cloves without relief. She is 35 weeks . Has taken amoxicillin in the past for a dental infection and did not have a reaction. Related Data Home Medications Medication Instructions Recorded Confirmed ergocalciferol (vitamin D2) 1,250 1,250 mcg PO WEEKLY 12/09/19 08/18/22 mcg (50,000 unit) capsule (Vitamin D2) vit no.95-ferrous 1 tablet PO DAILY 12/09/19 08/18/22 fumarate 28 mg-folic acid 800 mcg tablet () famotidine 20 mg tablet (Pepcid) 10 mg PRN PRN Heartburn 12/31/19 08/18/22 aspirin 81 mg tablet,delayed 81 mg DIRECTED 08/18/22 08/18/22 release levothyroxine 50 mcg tablet 50 mcg DIRECTED 08/18/22 08/18/22 Allergies Allergy/AdvReac Type Severity Reaction Status Date / Time levofloxacin Allergy Mild Rash Verified 12/09/19 12:44 cephalexin Allergy Unknown Other Verified 12/09/19 12:43 Review of Systems Review of Systems: Pertinent positives per HPI. Patient denies any fever, chills, rash, headache, visual changes, dizziness, cough, runny nose, sore throat, shortness of breath, chest pain, palpitations, nausea, vomiting, diarrhea, constipation, abdominal pain, or any urinary issues. [facility] Past Medical History Medical History (Updated 11/04/22 @ 09:08 by Hugo Wise APRN) Anxiety 2 UTI (urinary tract infection) Surgical History Surgical History History of cholecystectomy Family History Family History Mother Family history of gallbladder disease Hypertension Grandparent Family history of cardiovascular disease Hypertension Social History Social History Smoking status: Never smoker Alcohol intake: never Substance use: never Gender identity (if verbalized by the patient): Female Spiritual care concerns: No Comments At the time of my signature, I reviewed and agree with the nursing past medical, surgical, social, and family history. There is no relevant family history pertinent to the patient complaint. Exam Narrative: General: Well-developed, well nourished, in no apparent distress Head: Normocephalic, atraumatic Eyes: Pupils equally round and reactive to light bilaterally, EOM intact, sclera and conjunctive clear, no discharge, lids normal Ears: TMs intact and clear, ear canals clear, no drainage, grossly hearing normal. Nose: Nares patent, no discharge, no inflammation, no sinus tenderness. Mouth: Oropharynx without lesions or masses, poor dentition, MMM. Dental pain to the left upper posterior molar with mild swelling noted to the gums Neck: Supple, trachea midline, no enlargement of anterior or posterior cervical nodes, no thyroid masses or goiter palpable. Cardio: Regular rate and rhythm, s1 and s2 normal, no murmur appreciated. Resp: Clear to auscultation bilaterally anteriorly and posteriorly, no rhonchi, rales, wheezing or rubs Course Course Emergency Course: Portions of this record may have been created with voice recognition software. Level of Care: Express Care Visit Vital Signs Vital signs: Vital signs reviewed MDM - Dental/Oral MDM Narrative Medical decision making narrative: At the time of visit patient is resting comfortably on the exam table. I suspect patient has a toothache/possible dental infection. Will send in prescription for amoxicillin. Supportive measures were discussed with the patient she voiced unders
[2022-11-04 09:10] VITALS: BP 126/86; PULSE 91; RESP 18; TEMP 36.6; O2SAT 98
== END 2022-11-04 09:20 | disposition home or self-care (01) ==
PROVIDERS: Emergency Provider Nurse Practitioner Family; PCP Emergency Medicine
DX: O99.613 Diseases of the digestive system complicating pregnancy, third trimester (principal); Z3A.35 35 weeks gestation of pregnancy; K08.89 Other specified disorders of teeth and supporting structures
CPT/HCPCS: 99213; G0463

== ENCOUNTER 2022-11-25 08:19 | Outpatient (RCR) | payer OTHER, SELFPAY ==
--- NOTE | ~2022-11-25 | US_ITS ---
EXAMINATION: US OB limited DATE: 11/25/2022 09:27 INDICATION: Decreased movement during third trimester TECHNIQUE: Real-time ultrasound of the pelvis was performed. The interpreting radiologist was not pre sent for the study. COMPARISON: None. FINDINGS: There is a single living fetus in vertex presentation. The placenta is fundal. heart rate is 147 beats per minute (bpm). The amniotic fluid index is 17.9 cm which is normal (normal range : 7.5 cm to 24.4 cm). IMPRESSION: 1. Single living fetus in vertex presentation. 2. Normal amniotic fluid index. Reviewed, dictated and finalized at location B.
[2022-11-25 08:31] VITALS: BP 105/81; PULSE 120
[2022-11-25 08:45] VITALS: BP 106/74; PULSE 96
[2022-11-25 09:00] VITALS: BP 106/66; PULSE 98
[2022-11-25 09:06] VITALS: BP 105/81; PULSE 113
== END 2023-02-02 10:48 | disposition home or self-care (01) ==
LOC: ANHOBOP 08:19
PROVIDERS: PCP Emergency Medicine; Visit Provider Obstetrics & Gynecology Gynecology
DX: O36.8130 Decreased fetal movements, third trimester, not applicable or unspecified (principal); Z3A.37 37 weeks gestation of pregnancy
CPT/HCPCS: 59025; 76815

== ENCOUNTER 2022-12-04 07:34 | Inpatient (IN) | payer OTHER, SELFPAY ==
[2022-12-04] VITALS (51 sets, daily range): BP systolic 67–130; BP diastolic 27–105; PULSE 51–121; RESP 14–18; TEMP 36.1–36.6; O2SAT 83–100; BMI 43.0
--- NOTE | 2022-12-04 08:42 | WPDANESEPPF ---
Anes - Initial Pre Proc Eval Date/Time: 12/04/22 08:42 Surgeon: Oscar Michael MD Pre Op Diagnosis: Induction of Labor Patient Data Age: 32 Gender: F Height: 1.6 m Weight: 110 kg Last Vital Signs Pulse 102 H 12/04/22 08:31 BP 115/75 12/04/22 08:31 Allergies Allergy/AdvReac Type Severity Reaction Status Date / Time levofloxacin Allergy Mild Rash Verified 11/09/22 14:30 cephalexin Allergy Unknown Other Verified 11/09/22 14:30 Home Medications Medication Instructions Recorded Confirmed Type ergocalciferol (vitamin D2) 1,250 1,250 mcg PO WEEKLY 12/09/19 11/09/22 History mcg (50,000 unit) capsule (Vitamin D2) vit no.95-ferrous 1 tablet PO DAILY 12/09/19 11/09/22 History fumarate 28 mg-folic acid 800 mcg tablet () famotidine 20 mg tablet (Pepcid) 10 mg PRN PRN Heartburn 12/31/19 11/09/22 History aspirin 81 mg tablet,delayed 81 mg DIRECTED 08/18/22 11/09/22 History release levothyroxine 50 mcg tablet 50 mcg DIRECTED 08/18/22 11/09/22 History amoxicillin 875 mg tablet 875 mg PO Q12H 10 days #20 tabs 11/04/22 11/09/22 Rx Patient hx anesthesia problems: none Family hx anesthesia problems: none Results Review: All pre-operative results and documents have been reviewed as part of the pre-operative evaluation. [facility] Past Medical History Medical History Anxiety 2 UTI (urinary tract infection) Surgical History Surgical History History of cholecystectomy Family History Family History Mother Family history of gallbladder disease Hypertension Grandparent Family history of cardiovascular disease Hypertension Lung cancer Grandparent No problems noted. Social History Social History Smoking status: Never smoker Alcohol intake: never Substance use: never Gender identity (if verbalized by the patient): Female Spiritual care concerns: No Anes - Eval Final PreProcedure Day of Procedure 12/04/22 08:42 Patient weight: morbidly obese Heart: regular rate and rhythm Lungs: clear to auscultation Airway: Mallampati scale class II Neurological: alert and oriented ASA classification: III Emergent: yes Anesthetic plan: proceed Anesthesia type and monitoring: regional spinal and standard monitoring Results Review: All pre-operative results and documents have been reviewed as part of the pre-operative evaluation. Informed Consent: The patient's anesthetic plan and its attendant risks and benefits were discussed with the patient/family/POA. Questions were solicited and answers provided to the satisfaction of the patient/family/POA.
[2022-12-04] MEDS: AMPICILLIN 2 GM/NS 100 ML 2 GM/100 ML BAG IVPB (08:43)
[2022-12-04] MEDS: LACTATED RINGERS 1,000 ML 125 ML IV CONT (08:43)
[2022-12-04 08:46] LABS: Basophils Percent Auto 0.4 % (0.2-1.2); Eosinophils Absolute Auto 0.1 K/mm3 (0-0.3); Eosinophils Percent Auto 0.6 % (0-4.4); Hematocrit 33.7 % (37.0-47.0); Hemoglobin 11.1 g/dL (12.0-15.0); Immature Granulocyte Absolute 0.08 K/mm3 (0.00-0.031); Immature Granulocyte Percent A 0.8 % (0-0.5); Lymphocytes Absolute Auto 2.32 K/mm3 (0.9-3.2); Lymphocytes Percent Auto 23.5 % (18.3-44.2); Mean Corpuscular HGB Conc 32.9 g/dl (32-36); Mean Corpuscular Hemoglobin 27.1 pg (26-34); Mean Corpuscular Volume 82.4 fl (80-100); Monocytes Absolute Auto 0.5 K/mm3 (0.1-0.6); Monocytes Percent Auto 5.1 % (2.6-8.5); Neutrophils Absolute Auto 6.9 K/mm3 (1.3-6.7); Neutrophils Percent Auto 69.6 % (45.5-73.1); Platelet Count Result 248 k/mm3 (150-375); Red Blood Count 4.09 M/mm3 (4.2-5.4); Red Cell Distribution Width 13.6 % (11.5-14.5); White Blood Count 9.9 K/mm3 (4.5-10.0)
--- NOTE | 2022-12-04 08:47 | LDADM ---
This patient, Dena Talbert, was admitted to Labor/Delivery/Recovery 105 on 12/04/22 at 07:34. Plans for labor, pain management and were discussed with patient. Patient/family oriented to hospital policies and general routines including ID bracelet, bed and alarms, visiting hours, pain management, procedures, bathroom and other care routines, personal items, smoking policy, room service/diet and guest tray routines, security routines, and visiting hours. Patient/Family are encouraged to report perceived risks to care and to ask questions if they do not understand what they are told or what they should do. See OBIX for further documentation.
[2022-12-04] MEDS: ceFAZolin 2 GM/D5W 50 ML 2 GM/50 ML BAG IVPB (08:59)
[2022-12-04] MEDS: ONDANSETRON INJ 4 MG/2 ML VIAL IV PUSH ×2 (09:18→17:20)
--- NOTE | 2022-12-04 10:05 | P.PCNOB_ITS ---
OB - Delivery Note Procedure Procedure: Procedures Operation Date: 12/04/22 09:00 <No data on this case meets the specified criteria> Events: Breech Presentation Delivery monitor: External FHT and External Uterine Route of delivery: (With vertical extension) Prior to decision for section, ACOG/SM labor guidelines were considered and discussed with the patient and staff. Decision made to proceed with the section.: Yes Specimen: No Quantitative Blood Loss (ml): 920 Anesthesia type: Spinal Disposition: Floor Complications: None Narrative: Patient prepped and draped in usual manner for this procedure. Pfannenstiel incision was made carried down to the fascia which was then extended bilaterally the length of the skin incision. Superiorly and inferiorly dissected away from the rectus muscles and the peritoneum was readily entered. Bladder flap developed without difficulty nurse was scored. Clear fluid was noted with rupture membranes and footling breech was encountered. Delivered to the hip without difficulty, further pressure on the maternal abdomen delivered up to the shoulders and both arms were delivered without difficulty. There was some resistance noted with deliver the vertex and therefore vertical incision was made. Delivery without difficulty at this point of the vertex. Suctioned nasal oropharynx cord clamped cut baby was passed off the operative field. Uterus was exteriorized and membranes and clots removed from the cavity. Vertical incision was closed using 0 Monocryl in a running interlocking manner with good approximation hemostasis noted with 1 layer. Low transverse incision was then approximated using 0 Monocryl running interlocking manner with good approximation and hemostasis noted. Uterus turned the abdomen gutters were clear suture sites fluids and clots and the incisions all still hemostatic. All subfascial tissue was noted hemostatic and the fascia was approximated 0 Vicryl from left angle midline and right angle midline good approximation hemostasis noted. Subcutaneous tissue was approximated and skin to ashanti were then used to approximate the skin edges. Patient tolerated the procedure well and was sent to recovery room in stable condition. [place] Baby Weeks of gestation at delivery: 39 gender: Male presentation: breech Placenta delivery description: Manual Removal Cord Vessel Description: 3 Vessels [facility]G Delivery Billing Delivery Delivery: Delivery Charge
--- NOTE | 2022-12-04 10:05 | WPDHPUPDATE1 ---
History and Physical Update Update Date/Time: 12/04/22 10:05 31 old presents at term in active labor. Found to be footling breech ultrasound and physical exam. Discussed patient and proceed with primary low transverse section. History and Physical has been reviewed, including an updated exam of the patient. There are NO changes in the patient's condition. Risks, benefits, and alternatives have been discussed and questions answered. Patient agrees to proceed with procedure.
[2022-12-04] MEDS: MORPHINE SULFATE INJ (*CRX) 10 MG/ML AMP 3 MG IV PUSH (11:05)
[2022-12-04] MEDS: OXYTOCIN 30 UNITS/NS 500 ML 30 UNITS/500 ML BAG 125 UNITS IV CONT (12:16)
--- NOTE | 2022-12-04 13:00 | OBPPTRN ---
Patient transferred to post room # 285 via stretcher and moved to bed with assistance of a maxi air. Support person present and in open crib. PT oriented to unit, room, information board, rooming in, admission packet and security measures. PT introductions made and plan of care discussed per post op c section, pain management, breast feeding, daily care activities. PT received such instructions per one to one discussion, mom baby care guide and demonstrations this shift. Patient verbalizes understanding.
[2022-12-04] MEDS: KETOROLAC 30 MG/ML VIAL (*BKC) IV PUSH ×2 (17:19→22:30)
[2022-12-04] MEDS: SIMETHICONE 80 MG TAB.CHEW PO (17:20)
[2022-12-04] MEDS: DEXTROSE 5%/0.45% SOD CHL 1,000 ML 125 ML IV CONT (17:27)
[2022-12-04] MEDS: FAMOTIDINE 10 MG TABLET PO (22:30)
[2022-12-04] MEDS: HYDROcodone/acetaminophen (*CRX) 5-325 MG TABLET 1 TAB PO (22:30)
[2022-12-05] MEDS: IBUPROFEN 600 MG TABLET PO ×3 (04:30→19:07)
[2022-12-05] MEDS: HYDROcodone/acetaminophen (*CRX) 10-325 MG TABLET 1 TAB PO ×2 (04:30→13:18)
[2022-12-05] MEDS: SIMETHICONE 80 MG TAB.CHEW PO ×3 (04:30→19:07)
[2022-12-05 05:24] LABS: Basophils Percent Auto 0.4 % (0.2-1.2); Eosinophils Absolute Auto 0.1 K/mm3 (0-0.3); Eosinophils Percent Auto 0.7 % (0-4.4); Hemoglobin 9.1 g/dL (12.0-15.0); Immature Granulocyte Absolute 0.06 K/mm3 (0.00-0.031); Immature Granulocyte Percent A 0.5 % (0-0.5); Mean Corpuscular HGB Conc 32.5 g/dl (32-36); Mean Corpuscular Hemoglobin 27.4 pg (26-34); Mean Corpuscular Volume 84.3 fl (80-100); Mean Platelet Volume 9.9 fl (7.4-10.4); Monocytes Absolute Auto 0.8 K/mm3 (0.1-0.6); Monocytes Percent Auto 7.3 % (2.6-8.5); Neutrophils Percent Auto 72.1 % (45.5-73.1); Platelet Count Result 209 k/mm3 (150-375); Red Blood Count 3.32 M/mm3 (4.2-5.4); Red Cell Distribution Width 13.5 % (11.5-14.5)
[2022-12-05] MEDS: LEVOTHYROXINE SODIUM 50 MCG TABLET PO (07:10)
[2022-12-05 07:15] VITALS: BP 101/63; PULSE 58; RESP 16; TEMP 36.6; O2SAT 99
--- NOTE | 2022-12-05 07:19 | P.PNAN_ITS ---
Anes - Prog Note Post-Op Date/Time: 12/05/22 07:19 Cardiovascular status: normal Respiratory status: normal Airway patency: baseline Mental status: baseline Post-Op hydration status: normal Vital Signs: Last Vital Signs Temp 36.4 C L 12/04/22 22:30 Pulse 66 12/04/22 22:30 Resp 18 12/04/22 22:30 BP 101/63 12/04/22 22:30 Pulse Ox 99 12/04/22 22:30 O2 Del Method Room Air 12/05/22 04:30 Pain Score (VAS): 03/29 I/O: Intake & Output 12/04/22 12/04/22 12/05/22 15:59 23:59 07:59 Intake Total 1000 1000 2000 Output Total 1199 1300 1350 Balance -199 -300 650 Laboratory Tests 12/05/22 04:30 12/04/22 12/05/22 08:36 04:30 WBC 9.9 11.0 H RBC 4.09 L 3.32 L Hgb 11.1 L 9.1 L Hct 33.7 L 28.0 L MCV 82.4 84.3 MCH 27.1 27.4 MCHC 32.9 32.5 RDW 13.6 13.5 Plt Count 248 209 MPV 10.0 9.9 Immature Gran % (Auto) 0.8 H 0.5 Neut % (Auto) 69.6 72.1 Lymph % (Auto) 23.5 19.0 [place] % (Auto) 5.1 7.3 Eos % (Auto) 0.6 0.7 Baso % (Auto) 0.4 0.4 Lymph # (Auto) 2.32 2.10 [place] # (Auto) 0.5 0.8 H Eos # (Auto) 0.1 0.1 Baso # (Auto) 0.0 0.0 Abs Immat Gran (auto) 0.08 H 0.06 H Absolute Neuts (auto) 6.9 H 8.0 H Absolute Nucleated RBC 0.0 0.0 Nucleated RBC % 0.0 0.0 RPR Pending Blood Type A Positive Antibody Screen Negative Post-procedural complaints: none Patient Feedback: Patient satisfied with anesthetic care.
[2022-12-05 08:00] VITALS: PULSE 58; RESP 16; O2SAT 99
[2022-12-05 10:30] LABS: Rapid Plasma Reagin Non-Reactive (NonReactive)
[2022-12-05 13:00] VITALS: BP 109/72; PULSE 66; RESP 18; TEMP 36.4; O2SAT 100
--- NOTE | 2022-12-05 13:02 | PM.OBPNVD ---
OB - PN: Subj Subjective Date/time seen: 12/05/22 13:02 Patient comments: no complaints and pain well controlled baby status: doing well and other (needs tongue clipped) OB - PN: Obj Data Labs 12/05/22 04:30 Labs: Laboratory Results - last 24 hr 12/04/22 12/05/22 08:36 04:30 WBC 11.0 H RBC 3.32 L Hgb 9.1 L Hct 28.0 L MCV 84.3 MCH 27.4 MCHC 32.5 RDW 13.5 Plt Count 209 MPV 9.9 Immature Gran % (Auto) 0.5 Neut % (Auto) 72.1 Lymph % (Auto) 19.0 [place] % (Auto) 7.3 Eos % (Auto) 0.7 Baso % (Auto) 0.4 Lymph # (Auto) 2.10 [place] # (Auto) 0.8 H Eos # (Auto) 0.1 Baso # (Auto) 0.0 Abs Immat Gran (auto) 0.06 H Absolute Neuts (auto) 8.0 H Absolute Nucleated RBC 0.0 Nucleated RBC % 0.0 RPR Non-reactive OB - PN A/P Plan day: 1 Plan: routine care Time Spent With Patient Time: Total time spent is greater than 50% in coordination of care (as documented) at patient's floor/unit and/or counseling patient: Exam Narrative: Incision clean, dry, and intact : Bimanual exam- vagina & uterus: other (Uterus firm, nt @U)
[2022-12-05] MEDS: DOCUSATE SODIUM 100 MG CAPSULE PO ×2 (13:18→17:48)
[2022-12-05] MEDS: POLYSACCHARIDE IRON COMPLEX 150 MG CAPSULE PO ×2 (13:20→17:48)
[2022-12-05] MEDS: MULTIVIT/MIN/PREN/FOL AC/IRON TABLET 1 TAB PO (13:20)
--- NOTE | 2022-12-05 15:53 | PC.NURSE ---
1200 Introductions were made, then consulted with patient to assess needs related to . Mother led the conversation with her?plans to feed?her and the?experience so far. Mother works well with her with encouragement and education. Encouraged understanding of the benefits of skin to skin (demonstrating unwrapping and placing upright on her chest), stimulating with massage touch, changing positions to encourage wakefulness, how to watch for early feeding cues, responsive feeding, feeding on demand (aiming for 8-12 times in 24 hours, about every 2-3 hours), milk production, building/maintaining a milk supply, duration of feeding, signs of adequate intake/output and how to record on the feeding sheet. Reviewed positioning and ear, shoulder, hip alignment, supporting the breast to facilitate a deep latch, asymmetrical latch (off-center), leading with the chin with a big, open, wide gape and body close to mother. Infant latched bilaterally but noted baby's tongue is tied. Reported to primary RN who will speak with physician. Education given to mother of how to visualize suck/swallow ratios and listen for drinking at the breast. Infant was able to maintain latch without discomfort to mother. Nipple care reviewed with optimal latch and good positioning. Reminding mother of comfort measures of healing with a warm and wet washcloth to rinse breast, then leave open to air-dry as needed. Reviewed good handwashing when or touching the breast/nipples to prevent infection. Resources used to facilitate learning were used with the visual handouts, mom and baby guide. Mother voiced understanding of skin to skin, stimulating with massage touch, responsive feedings, hand expressed colostrum, talking to to encourage if it has been 2 -2.5 hours since the start of the last , to call if infant does not latch, or if there is discomfort with . Resources provided for inpatient/outpatient with business card, feeding sheet and the mom/baby guide. Parents voiced understanding of information, demonstrated learning and will call if there is a request for assistance. Reported to primary RN.
--- NOTE | 2022-12-05 16:16 | PC.NURSE ---
1030 Introductions were made, then consulted with patient to assess needs related to . Mother led the conversation with her?plans to feed?her and the?experience so far. Mother works well with her with encouragement and education. Encouraged understanding of the benefits of skin to skin (demonstrating unwrapping and placing upright on her chest), stimulating with massage touch, changing positions to encourage wakefulness, how to watch for early feeding cues, responsive feeding, feeding on demand (aiming for 8-12 times in 24 hours, about every 2-3 hours), milk production, building/maintaining a milk supply, duration of feeding, signs of adequate intake/output and how to record on the feeding sheet. Reviewed positioning and ear, shoulder, hip alignment, supporting the breast to facilitate a deep latch, asymmetrical latch (off-center), leading with the chin with a big, open, wide gape and body close to mother. Suggested for mother to pump before feedings for flat nipples; to encourage baby to latch on properly. Infant latched optimally to both breasts in cross cradle position. Education given to mother of how to visualize suck/swallow ratios and listen for drinking at the breast. was able to maintain latch without discomfort to mother. Nipple care reviewed with optimal latch and good positioning. Reminding mother of comfort measures of healing with a warm and wet washcloth to rinse breast, then leave open to air-dry as needed. Reviewed good handwashing when or touching the breast/nipples to prevent infection. Resources used to facilitate learning were used with the visual handouts, mom and baby guide. Mother voiced understanding of skin to skin, stimulating with massage touch, responsive feedings, hand expressed colostrum, talking to infant to encourage if it has been 2 -2.5 hours since the start of the last , to call if does not latch, or if there is discomfort with . Resources provided for inpatient/outpatient with business card, feeding sheet and the mom/baby guide. Parents voiced understanding of information, demonstrated learning and will call if there is a request for assistance. Reported to primary RN.
[2022-12-05] MEDS: FAMOTIDINE 10 MG TABLET PO (17:48)
[2022-12-05] MEDS: HYDROcodone/acetaminophen (*CRX) 5-325 MG TABLET 1 TAB PO (19:09)
[2022-12-05 20:00] VITALS: BP 116/72; PULSE 77; RESP 18; TEMP 36.6; O2SAT 100
[2022-12-06] MEDS: SIMETHICONE 80 MG TAB.CHEW PO (00:36)
[2022-12-06] MEDS: HYDROcodone/acetaminophen (*CRX) 10-325 MG TABLET 1 TAB PO ×2 (00:36→13:09)
[2022-12-06] MEDS: IBUPROFEN 600 MG TABLET PO ×3 (00:37→13:08)
[2022-12-06] MEDS: POLYSACCHARIDE IRON COMPLEX 150 MG CAPSULE PO (07:30)
[2022-12-06] MEDS: LEVOTHYROXINE SODIUM 50 MCG TABLET PO (07:31)
[2022-12-06] MEDS: DOCUSATE SODIUM 100 MG CAPSULE PO (07:31)
[2022-12-06] MEDS: MULTIVIT/MIN/PREN/FOL AC/IRON TABLET 1 TAB PO (07:31)
--- NOTE | 2022-12-06 07:51 | PM.OBPNVD ---
OB - PN: Subj Subjective Date/time seen: 12/06/22 07:51 Patient comments: no complaints and pain well controlled baby status: doing well OB - PN: Obj Data Labs 12/05/22 04:30 Labs: Laboratory Results - last 24 hr 12/04/22 08:36 RPR Non-reactive OB - PN A/P Plan day: 2 Plan: routine care and discharge home Time Spent With Patient Time: Total time spent is greater than 50% in coordination of care (as documented) at patient's floor/unit and/or counseling patient: Exam Narrative: inc c/d/i : Bimanual exam- vagina & uterus: other (Uterus firm, nt @U)
--- NOTE | 2022-12-06 07:54 | PM.OBDSVD ---
DS: Admitting Diagnosis Discharge Date 12/06/22 Admitting Diagnosis labor breech DS: Discharge Diagnosis Discharge Diagnosis (1) delivery delivered: Code(s): O82 - Encounter for delivery without indication Status: Acute OB - DS: Summary OB Procedures : Ultrasound OB Procedures Intrapartum: low cervical, transverse OB Procedures: : None Peripartum Data Infant Delivery Method: Section Procedures: Procedures Operation Date: 12/04/22 09:00 Actual Procedure Side Surgeon p Section Not Applicable Oscar Michael MD complications: none Status at Discharge Functional status at discharge: independent ambulation Overall status at discharge: patient is progressing back to baseline Time Spent with Patient Time attestation: Total time spent providing and/or coordinating discharge services: DS: Data Data Completed and Pending Labs on day of discharge: Labs from last 24 hours 12/04/22 08:36 RPR Non-reactive Discharge Plan Discharge Attending physician on discharge: Nicci Roche Discharging Clinician: Nicci Roche Anticipated Discharge Date/Time: 12/06/22 07:51 Patient Disposition: Home, Self-Care Activity: may shower, may drive after 2 weeks and pelvic rest Diet: regular Wound Care Instructions: incision open to air Patient Instructions: Antibiotic Form Stand Alone Forms: General Discharge Information Follow-up/Referrals: Nicci Roche MD [Physician] - 1 Week (and 6 wk) Discharge Medications: New hydrocodone-acetaminophen 5-325 mg tablet 1 tablet PO Q4H PRN (Reason: pain) Qty: 20 0RF norethindrone (contraceptive) 0.35 mg tablet 0.35 mg PO DAILY Qty: 84 3RF Continued levothyroxine 50 mcg tablet 50 mcg DIRECTED ergocalciferol (vitamin D2) [Vitamin D2] 1,250 mcg (50,000 unit) Capsule 1,250 mcg PO WEEKLY PNV cmb#95-ferrous fumarate-FA [] 28 mg iron- 800 mcg Tablet 1 tablet PO DAILY Discontinued aspirin [Aspir-81] 81 mg Tablet,Delayed Release (Dr/Ec) 81 mg DIRECTED amoxicillin 875 mg tablet 875 mg PO Q12H 10 Days Qty: 20 0RF famotidine [Pepcid] 20 mg Tablet 10 mg PRN PRN (Reason: Heartburn) Date of admission: 12/04/22 07:34 Primary Care Provider: Aj Ayon Admitting Provider: Oscar Michael Attending physician on admission: Nicci Roche Condition: Stable
[2022-12-06 08:55] VITALS: BP 112/75; PULSE 88; RESP 16; TEMP 36.3; O2SAT 99
--- NOTE | 2022-12-06 10:01 | PC.NURSE ---
[id number] Purposefully rounded per the request of Dr. Figueroa. Introductions were made, then consulted with patient to assess needs related to . Mother led the conversation with her?plans to feed?her , the?experience so far and did not receive offer of assisting with at this time. We discussed protecting her milk supply, milk production, different feeding options, risk of delayed milk and offered assistance while patient is here. Reviewed pumping usage, proper fitting, care and cleaning. Mother states she is not consistently pumping, however, pumps without pain. Resources provided for inpatient and outpatient services with the feeding sheet, mom/baby guide and name written on the white board. Mother voiced understanding of information and will call if there is a request for assistance. Reported to the primary RN.
[2022-12-07 08:23] VITALS: BP 117/72; PULSE 86; RESP 18; TEMP 36.7; O2SAT 100
== END 2022-12-06 13:15 | disposition home or self-care (01) | DRG 788 ==
LOC: ANHLDR 08:18 → ANHOB2 13:01
PROVIDERS: Admitting Provider Obstetrics & Gynecology; PCP Emergency Medicine; Visit Provider Obstetrics & Gynecology Gynecology
PROC: 10D00Z1 Extraction of Products of Conception, Low, Open Approach (ICD-10-PCS; CPT 59514; principal; 2022-12-04 09:00)
DX: O32.8XX0 Maternal care for other malpresentation of fetus, not applicable or unspecified (principal); O99.824 Streptococcus B carrier state complicating childbirth; Z3A.39 39 weeks gestation of pregnancy; Z37.0 Single live birth
CPT/HCPCS: 36415; 85025; 86592; 86850; 86900; 86901; A9270; J0290; J0690; J1885; J2270; J2274; J2371; J2405; J2590; J7120